=== PATIENT | male | born 1970 | race American Indian/Alaskan Native ===

== ENCOUNTER 2020-05-15 11:12 | Emergency (ER) | payer SELFPAY ==
--- NOTE | 2020-05-15 11:27 | Emergency Department Report ---
ED Fall HPI - General Chief Complaint: Fall Stated Complaint: BACK/RIB INJURY/FALL Time Seen by Provider: 05/15/20 11:22 Source: patient Mode of arrival: Ambulatory - History of Present Illness Initial Comments: 49-year-old male presents to the ER today with complaints of left rib pain, and thoracic back pain. Patient states that last night, he was walking down the steps when he missed a step and fell. Patient states that he was on the fifth step from the top, he stated that he landed directly on that step and struck his back on the edge of the step. He did not roll down a slide down the step. He denies any head injury. He states that he has increased pain with movement of his left arm, trunk, and on palpation. He reports increased pain with cough but denies any shortness of breath. He denies any apparent bruising, swelling or any open wounds. Reports no other symptoms at this time. MD Complaint: fall -: Sudden, days(s) (1) - Related Data Previous Rx's Medication Instructions Recorded Last Taken Type Ibuprofen [Motrin] 800 mg PO Q8HR PRN #30 tablet 05/15/20 Unknown Rx methOCARBAMOL [Robaxin TAB] 750 mg PO Q8H PRN #30 tablet 05/15/20 Unknown Rx Allergies Allergy/AdvReac Type Severity Reaction Status Date / Time Penicillins Allergy Hives Verified 05/15/20 11:14 ED Review of Systems ROS: Stated complaint: BACK/RIB INJURY/FALL Other details as noted in HPI Comment: All other systems reviewed and negative Respiratory: other (Left rib pain). denies: cough, orthopnea, shortness of breath, SOB with exertion, SOB at rest, wheezing Cardiovascular: denies: chest pain, palpitations, dyspnea on exertion, edema, syncope, paroxysmal nocturnal dyspnea Gastrointestinal: denies: abdominal pain, nausea, vomiting, diarrhea, constipation, hematemesis, melena, hematochezia Genitourinary: denies: urgency, dysuria Musculoskeletal: back pain. denies: joint swelling, arthralgia Skin: denies: rash, lesions Neurological: denies: numbness, paresthesias, confusion, abnormal gait Psychiatric: denies: anxiety, depression, auditory hallucinations, visual hallucinations, homicidal thoughts, suicidal thoughts Hematological/Lymphatic: denies: easy bleeding, easy bruising ED Past Medical Hx - Past Medical History Hx Hypertension: Yes - Surgical History Additional Surgical History: abd as a child - Social History Smoking Status: Never Smoker Substance Use Type: None - Medications Home Medications: Home Medications Medication Instructions Recorded Confirmed Last Taken Type Ibuprofen [Motrin] 800 mg PO Q8HR PRN #30 tablet 05/15/20 Unknown Rx methOCARBAMOL [Robaxin TAB] 750 mg PO Q8H PRN #30 tablet 05/15/20 Unknown Rx ED Physical Exam - General Limitations: No Limitations General appearance: alert, in no apparent distress - Head Head exam: Present: atraumatic, normocephalic, normal inspection - Eye Eye exam: Present: normal appearance, PERRL, EOMI Pupils: Present: normal accommodation - ENT ENT exam: Present: normal exam, mucous membranes moist - Neck Neck exam: Present: normal inspection, full ROM - Respiratory Respiratory exam: Present: normal lung sounds bilaterally, chest wall tenderness (Tenderness to palpation to the left anterior upper and lower chest wall, left mid lateral chest wall, and left lower/mid posterior chest wall; no apparent deformity; no flail chest; no open wound; no erythema or ecchymosis; no swelling). Absent: respiratory distress, wheezes, rales, rhonchi - Cardiovascular Cardiovascular Exam: Present: regular rate, normal rhythm, normal heart sounds - GI/Abdominal GI/Abdominal exam: Present: soft. Absent: distended, tenderness, guarding - Back Exam Back exam: Present: normal inspection, full ROM, muscle spasm (Moderate mid left thoracic), paraspinal tenderness (Moderate, mid left thoracic). Absent: rash noted - Neurological Exam Neurological exam: Present: alert, oriented X3, CN II-XII intact, normal gait. Absent: motor sensory deficit - Psychiatric Psychiatric exam: Present: normal affect, normal mood - Skin Skin exam: Present: intact ED Course Vital Signs 05/15/20 11:19 Temperature 99.2 F Pulse Rate 101 H Respiratory 18 Rate Blood Pressure 157/115 O2 Sat by Pulse 97 Oximetry ED Medical Decision Making - Radiology Data Radiology results: report reviewed Patient: RANGEL GIL MR#: [id number] : 1970 Acct:[id number] Age/Sex: 49 / M ADM Date: 05/15/20 Loc: ED Attending Dr: Ordering Physician: ZEHRA LORENZANA Date of Service: 05/15/20 Procedure(s): XR ribs UNI w PA chest 3+V LT Accession Number(s): [id number] cc: ZEHRA LORENZANA Fluoro Time In Minutes: XR ribs UNI w PA chest 3+V LT, XR spine thoracic 3V INDICATION: Left rib pain/fall on step. TECHNIQUE: All CT scans at this location are performed using CT dose reduction for ALARA by means of automated exposure control. COMPARISON: None available. FINDINGS: Left RIBS 6 views: No appreciable fracture. No pneumothorax, pleural fluid or acute pulmonary disease. Incidentally noted are calcified right hilar and azygos esophageal nodes. Thoracic spine 3 views: Mild degenerative changes, with slight intervertebral disc space narrowing and minimal anterior hypertrophic spurring, but no fracture, subluxation or other acute abnormality. IMPRESSION: 1. No acute abnormalities of the left ribs or thoracic spine. Signer Name: Winston Loaiza MD Signed: 05/15/2020 12:15 PM Workstation Name: [id number] Transcribed By: TM Dictated By: Winston Loaiza MD Electronically Authenticated By: Winston Loaiza MD Signed Date/Time: 05/15/20 1215 DD/ 1210 TD/TT: - Medical Decision Making X-ray of the ribs and T-spine shows nothing acute. Suspect rib and back contusion at this time. Patient is well-appearing, not toxic, not in any acute distress, he is neurologically intact with a normal gait in the ER. Patient blood pressure noted to be elevated in triage, but he admits that he has not taken his blood pressure medication today, remaining vitals are stable. Discussed x-ray results and suspected diagnosis and treatment plan with patient. Recommend he takes blood pressure medication when he gets home. Patient expressed understanding of instructions and agree with plan. Patient stable at time of discharge. Critical care attestation.: If time is entered above; I have spent that time in minutes in the direct care of this critically ill patient, excluding procedure time. ED Disposition Clinical Impression: Contusion, back, Contusion of rib on left side Disposition: DC-01 TO HOME OR SELFCARE Is pt being admited?: No Does the pt Need Aspirin: No Condition: Stable Instructions: Contusion, [id number], Rib Contusion Additional Instructions: Take the Motrin and the muscle relaxer as prescribed. Follow-up with the primary care doctor listed on your discharge instructions in 1 week. Return to the ER if your symptoms changes or worsens in any way. Prescriptions: Ibuprofen [Motrin] 800 mg PO Q8HR PRN #30 tablet PRN Reason: Pain methOCARBAMOL [Robaxin TAB] 750 mg PO Q8H PRN #30 tablet PRN Reason: Spasms Referrals: KIM MARTINEZ MD [Staff Physician] - 7-10 days Forms: Work/School Release Form(ED) Time of Disposition: 12:32
--- NOTE | 2020-05-15 12:20 | XRay Report ---
XR ribs UNI w PA chest 3+V LT, XR spine thoracic 3V INDICATION: Left rib pain/fall on step. TECHNIQUE: All CT scans at this location are performed using CT dose reduction for ALARA by means of automated e xposure control. COMPARISON: None available. FINDINGS: Left RIBS 6 views: No appreciable fracture. No pneumothorax, pleural fluid or acute pulmonary disease. Incidentally note d are calcified right hilar and azygos esophageal nodes. Thoracic spine 3 views: Mild degenerative changes, with slight intervertebral disc space narrowing and minimal anterior hyper trophic spurring, but no fracture, subluxation or other acute abnormality. IMPRESSION: 1. No acute abnormalities of the left ribs or thoracic spine. Signer Name: Winston Loaiza MD Signed: 05/15/2020 12:15 PM Workstation Name: [id number]
[2020-05-15 13:28] VITALS: BP 205/115
== END 2020-05-15 13:13 | disposition home or self-care (01) ==
LOC: ED 11:12
DX: S20.229A Contusion of unspecified back wall of thorax, initial encounter (principal); S20.212A Contusion of left front wall of thorax, initial encounter; I10 Essential (primary) hypertension; Z88.0 Allergy status to penicillin; Z79.899 Other long term (current) drug therapy; Z98.890 Other specified postprocedural states; W10.9XXA Fall (on) (from) unspecified stairs and steps, initial encounter; Y93.89 Activity, other specified; Y92.89 Other specified places as the place of occurrence of the external cause; Y99.8 Other external cause status
CPT/HCPCS: 72072